=== PATIENT | female | born 1965 | race Caucasian/White ===

== ENCOUNTER 2022-12-02 02:46 | Emergency (ER) | payer OTHER ==
[2022-12-02 02:57] LABS: Glucose,Whole Blood 130 mg/dL (70-110)
--- NOTE | 2022-12-02 03:03 | ED ---
Alcohol HPI - General Stated Complaint: Fall, Head Injury Time Seen by Provider: 12/02/22 02:57 Source: EMS, RN notes reviewed, old records reviewed Limitations: altered mental status, physical limitation - History of Present Illness Initial Comments: This is a 55-year-old female to the emergency department for evaluation of fall. Patient had an alcoholic fall down an unknown amount of stairs. Patient did fall with head injury. She did hit her head and likely passed out per family but they're unsure. Patient was drinking alcohol today. Patient's brought in by EMS provides history is no family is currently at bedside. Patient is unable to provide any history as she has a GCS of 12, persistent intoxication was admitted admitted alcohol consumption today. Patient is not speaking or answering questions MD Complaint: alcohol intoxication Last Drink: unknown -: minute(s) Previous Visits for Alcohol Intoxication?: No Recent Trauma: Yes Treatments Prior to Arrival: cervical collar, spinal immobilization - Related Data Allergies Allergy/AdvReac Type Severity Reaction Status Date / Time Unable to Assess Allergy Verified 12/02/22 03:10 Review of Systems ROS Statement: Those systems with pertinent positive or pertinent negative responses have been documented in the HPI. ROS Other: All systems not noted in ROS Statement are negative. General Exam - General Exam Comments Initial Comments: GCS 12 Airways patent Trachea is midline Breath sounds are equal bilaterally Patient is not speaking Patient is able to move all extremities Limitations: altered mental status General appearance: alert, appears intoxicated, anxious, lethargic, in distress Head exam: Present: atraumatic, normocephalic, normal inspection Eye exam: Present: normal appearance, PERRL, EOMI, nystagmus. Absent: scleral icterus, conjunctival injection, periorbital swelling ENT exam: Present: normal exam, mucous membranes moist Neck exam: Present: normal inspection. Absent: tenderness, meningismus, lymphadenopathy Respiratory exam: Present: normal lung sounds bilaterally. Absent: respiratory distress, wheezes, rales, rhonchi, stridor Cardiovascular Exam: Present: regular rate, normal rhythm, normal heart sounds. Absent: systolic murmur, diastolic murmur, rubs, gallop, clicks GI/Abdominal exam: Present: soft, normal bowel sounds. Absent: distended, tenderness, guarding, rebound, rigid Extremities exam: Present: normal inspection, full ROM, normal capillary refill. Absent: tenderness, pedal edema, joint swelling, calf tenderness Back exam: Present: normal inspection Neurological exam: Present: alert, oriented X3, CN II-XII intact Psychiatric exam: Present: normal affect, normal mood Skin exam: Present: warm, dry, intact, normal color. Absent: rash Course Vital Signs 12/02/22 12/02/22 12/02/22 02:46 02:57 04:35 Pulse Rate 80 70 77 Respiratory 17 16 16 Rate Blood Pressure 144/94 121/79 121/79 O2 Sat by Pulse 97 99 99 Oximetry - Reevaluation(s) Reevaluation #1: 12/02/22 03:58 Medical record is reviewed Reevaluation #2: 12/02/22 03:58 Patient's neurological symptoms improving patient is currently able to speak and understand questioning Reevaluation #3: 12/02/22 03:58 Patient family informed of results questions answered Reevaluation #4: 12/02/22 03:58 Was pt. sent in by a medical professional or institution? @ -no Did you speak to anyone other than the patient for history? @ -no Did you review nursing and triage notes? @ -agree Were old charts reviewed? @ -yes Differential Diagnosis? @ -prior EKG interpreted by me (3pts min.)? @ -yes X-rays interpreted by me (1pt min.)? @ -yes CT interpreted by me (1pt min.)? @ -yes U/S interpreted by me (1pt. min.)? @ -no What testing was considered but not performed? (CT, X-rays, U/S, labs)? Why? @ -no What meds were considered but not given? Why? @ -no Did you discuss the management of the patient with other professionals? @ -no Did you reconcile home meds? @ -no Was smoking cessation discussed for >3mins.? @ -no Was critical care preformed (if so, how long)? @ -no Were there social determinants of health that impacted care today? How? (Home lessness, low income, unemployed, alcoholism, drug addiction, transportation, low edu. Level, literacy, decrease access to med. care, custodial, rehab)? @ -no Was there de-escalation of care discussed even if they declined? (Discuss DNR or withdrawal of care, Hospice)? @ -no What co-morbidities impacted this encounter? (DM, HTN, Smoking, COPD, CAD, Cancer, CVA, Hep., AIDS, mental health diagnosis, sleep apnea, morbid obesity)? @ -none Was patient admitted / discharged? @ -55 female to the emergency department today for evaluation of fall. Fall down flight of stairs with head trauma. Patient does have subarachnoid hemorrhage, patient originally was initially aphasic but currently answering q uestions and able to understand severity of situation. Patient will be transferred to [facility] for neurology evaluation and treatment Transferred Admitted Undiagnosed new problem with uncertain prognosis? @ -no Drug Therapy requiring intensive monitoring for toxicity (Heparin, Nitro, Insulin, Cardizem)? @ -no Were any procedures done? @ -no Diagnosis/symptom? @ -Fall, subarachnoid hemorrhage Acute, or Chronic, or Acute on Chronic? @ -acute Uncomplicated (without systemic symptoms) or Complicated (systemic symptoms)? @ -complicated Side effects of treatment? @ -no Exacerbation, Progression, or Severe Exacerbation] @ -no Poses a threat to life or bodily function? @ -yes intracranial hemorrhage Reevaluation #5: 12/02/22 03:58 Differential Altered Mental Status: Hypoglycemia, DKA, hypercapnia, ETOH, overdose, CO poisoning, trauma, myxedema coma, HTN encephalopathy, infection, encephalitis, psychosis, intercranial hemorrhage, hepatic encephalopathy, meningitis, CVA, this is not meant to be an all-inclusive list - Consultations Consultation #1: Spoke with [facility] will accept patient for transfer Medical Decision Making - Medical Decision Making 55 female to the emergency department today for evaluation of fall. Fall down flight of stairs with head trauma. Patient does have subarachnoid hemorrhage, patient originally was initially aphasic but currently answering questions and able to understand severity of situation. Patient will be transferred to [facility] for neurology evaluation and treatment - Lab Data Result diagrams: 12/02/22 02:50 12/02/22 02:50 Lab Results 12/02/22 12/02/22 12/02/22 Range/Units 02:50 02:50 02:50 WBC 8.6 (3.8-10.6) k/uL RBC 4.28 (3.80-5.40) m/uL Hgb 13.8 (11.4-16.0) gm/dL Hct 41.5 (34.0-46.0) % MCV 96.8 (80.0-100.0) fL MCH 32.3 (25.0-35.0) pg MCHC 33.3 (31.0-37.0) g/dL RDW 11.9 (11.5-15.5) % Plt Count 224 (150-450) k/uL MPV 7.4 Neutrophils % 41 % Lymphocytes % 46 % Monocytes % 7 % Eosinophils % 3 % Basophils % 1 % Neutrophils # 3.5 (1.3-7.7) k/uL Lymphocytes # 4.0 (1.0-4.8) k/uL Monocytes # 0.6 (0-1.0) k/uL Eosinophils # 0.2 (0-0.7) k/uL Basophils # 0.1 (0-0.2) k/uL PT 10.6 (9.0-12.0) sec INR 1.0 (<1.2) APTT 22.4 (22.0-30.0) sec Sodium 137 (137-145) mmol/L Potassium 4.9 (3.5-5.1) mmol/L Chloride 103 (98-107) mmol/L Carbon Dioxide 23 (22-30) mmol/L Anion Gap 11 mmol/L BUN 10 (7-17) mg/dL Creatinine 0.39 L (0.52-1.04) mg/dL Est GFR (CKD-EPI)AfAm >90 (>60 ml/min/1.73 sqM) Est GFR (CKD-EPI)NonAf >90 (>60 ml/min/1.73 sqM) Glucose 121 H (74-99) mg/dL POC Glucose (mg/dL) (70-110) mg/dL POC Glu C[employer] Sprayer Helper ID Plasma Lactic Acid Amos (0.7-2.0) mmol/L Calcium 8.6 (8.4-10.2) mg/dL Total Bilirubin 0.8 (0.2-1.3) mg/dL AST 81 H (14-36) U/L ALT 67 H (4-34) U/L Alkaline Phosphatase 65 (38-126) U/L Troponin I (0.000-0.034) ng/mL Total Protein 7.2 (6.3-8.2) g/dL Albumin 4.6 (3.5-5.0) g/dL Serum Alcohol 348 H* mg/dL Blood Type Blood Type Confirm Blood Type Recheck Bld Type Recheck Status Antibody Screen Spec Expiration Date 12/02/22 12/02/22 12/02/22 Range/Units 02:50 02:50 02:50 WBC (3.8-10.6) k/uL RBC (3.80-5.40) m/uL Hgb (11.4-16.0) gm/dL Hct (34.0-46.0) % MCV (80.0-100.0) fL MCH (25.0-35.0) pg MCHC (31.0-37.0) g/dL RDW (11.5-15.5) % Plt Count (150-450) k/uL MPV Neutrophils % % Lymphocytes % % Monocytes % % Eosinophils % % Basophils % % Neutrophils # (1.3-7.7) k/uL Lymphocytes # (1.0-4.8) k/uL Monocytes # (0-1.0) k/uL Eosinophils # (0-0.7) k/uL Basophils # (0-0.2) k/uL PT (9.0-12.0) sec INR (<1.2) APTT (22.0-30.0) sec Sodium (137-145) mmol/L Potassium (3.5-5.1) mmol/L Chloride (98-107) mmol/L Carbon Dioxide (22-30) mmol/L Anion Gap mmol/L BUN (7-17) mg/dL Creatinine (0.52-1.04) mg/dL Est GFR (CKD-EPI)AfAm (>60 ml/min/1.73 sqM) Est GFR (CKD-EPI)NonAf (>60 ml/min/1.73 sqM) Glucose (74-99) mg/dL POC Glucose (mg/dL) (70-110) mg/dL POC Glu C[employer] Sprayer Helper ID Plasma Lactic Acid Amos 1.5 (0.7-2.0) mmol/L Calcium (8.4-10.2) mg/dL Total Bilirubin (0.2-1.3) mg/dL AST (14-36) U/L ALT (4-34) U/L Alkaline Phosphatase (38-126) U/L Troponin I <0.012 (0.000-0.034) ng/mL Total Protein (6.3-8.2) g/dL Albumin (3.5-5.0) g/dL Serum Alcohol mg/dL Blood Type O Negative Blood Type Confirm Blood Type Recheck No Previous Record Bld Type Recheck Status CABO Indicated Antibody Screen NEGATIVE Spec Expiration Date 12/05/2022 - 234912/02/22 12/02/22 Range/Units 02:55 02:55 WBC (3.8-10.6) k/uL RBC (3.80-5.40) m/uL Hgb (11.4-16.0) gm/dL Hct (34.0-46.0) % MCV (80.0-100.0) fL MCH (25.0-35.0) pg MCHC (31.0-37.0) g/dL RDW (11.5-15.5) % Plt Count (150-450) k/uL MPV Neutrophils % % Lymphocytes % % Monocytes % % Eosinophils % % Basophils % % Neutrophils # (1.3-7.7) k/uL Lymphocytes # (1.0-4.8) k/uL Monocytes # (0-1.0) k/uL Eosinophils # (0-0.7) k/uL Basophils # (0-0.2) k/uL PT (9.0-12.0) sec INR (<1.2) APTT (22.0-30.0) sec Sodium (137-145) mmol/L Potassium (3.5-5.1) mmol/L Chloride (98-107) mmol/L Carbon Dioxide (22-30) mmol/L Anion Gap mmol/L BUN (7-17) mg/dL Creatinine (0.52-1.04) mg/dL Est GFR (CKD-EPI)AfAm (>60 ml/min/1.73 sqM) Est GFR (CKD-EPI)NonAf (>60 ml/min/1.73 sqM) Glucose (74-99) mg/dL POC Glucose (mg/dL) 130 H (70-110) mg/dL POC Glu C[employer] Sprayer Helper ID Shimon Howard Plasma Lactic Acid Amos (0.7-2.0) mmol/L Calcium (8.4-10.2) mg/dL Total Bilirubin (0.2-1.3) mg/dL AST (14-36) U/L ALT (4-34) U/L Alkaline Phosphatase (38-126) U/L Troponin I (0.000-0.034) ng/mL Total Protein (6.3-8.2) g/dL Albumin (3.5-5.0) g/dL Serum Alcohol mg/dL Blood Type Blood Type Confirm O Negative Blood Type Recheck Bld Type Recheck Status Antibody Screen Spec Expiration Date - EKG Data -: EKG Interpreted by Me (EKG is sinus 77 OK 197 QRS 180 QTC 439) - Radiology Data Radiology results: report reviewed (CT chest abdomen pelvis negative for acute disease CT brain C-spine does show frontal subarachnoid subdural hemorrhage), image reviewed Critical Care Time Critical Care Time: Yes Total Critical Care Time: 31 Disposition Clinical Impression: Fall, Subarachnoid hemorrhage, Subdural hemorrhage Disposition: OTHER INSTITUTION NOT DEFINED Condition: Critical Is patient prescribed a controlled substance at d/c from ED?: No Referrals: None,Stated [REFERRING] - 1-2 days Time of Disposition: 04:10 - Out of Hospital Transfer - Req. Specs Out of Hospital Transfer - Requested Specifics: Other Emergency Center ([facility])
[2022-12-02 03:17] LABS: ALT 67 U/L (4-34); African American GFR (CKD) >90 (>60 ml/min/1.73 sqM); Albumin 4.6 g/dL (3.5-5.0); Anion Gap 11 mmol/L; Blood Urea Nitrogen 10 mg/dL (7-17); Calcium 8.6 mg/dL (8.4-10.2); Carbon Dioxide 23 mmol/L (22-30); Chloride 103 mmol/L (98-107); Glucose 121 mg/dL (74-99); Non-African American GFR(CKD) >90 (>60 ml/min/1.73 sqM); Sodium 137 mmol/L (137-145); Total Bilirubin 0.8 mg/dL (0.2-1.3)
[2022-12-02 03:20] LABS: Basophils # (A) 0.1 k/uL (0-0.2); Basophils % (A) 1 %; Eosinophils # (A) 0.2 k/uL (0-0.7); Eosinophils % (A) 3 %; HCT 41.5 % (34.0-46.0); HGB 13.8 gm/dL (11.4-16.0); Lymphocytes % (A) 46 %; MCH 32.3 pg (25.0-35.0); MCHC 33.3 g/dL (31.0-37.0); MCV 96.8 fL (80.0-100.0); Mean Platelet Volume 7.4; Monocytes # (A) 0.6 k/uL (0-1.0); Monocytes % (A) 7 %; Neutrophils # (A) 3.5 k/uL (1.3-7.7); Neutrophils % (A) 41 %; Platelet Count 224 k/uL (150-450); RBC 4.28 m/uL (3.80-5.40); RDW 11.9 % (11.5-15.5); WBC 8.6 k/uL (3.8-10.6)
[2022-12-02 03:29] LABS: AST 81 U/L (14-36); Alcohol 348 mg/dL; Alkaline Phosphatase 65 U/L (38-126); Potassium 4.9 mmol/L (3.5-5.1); Total Protein 7.2 g/dL (6.3-8.2)
[2022-12-02 03:50] LABS: Partial Thromboplastin Time 22.4 sec (22.0-30.0); Prothrombin Time 10.6 sec (9.0-12.0)
--- NOTE | 2022-12-02 03:57 | CT ---
EXAM: CT Head Without Intravenous Contrast CLINICAL HISTORY: ITS.REASON CT Reason: trauma TECHNIQUE: Axial computed tomography images of the head/brain without intravenous contrast. CTDI is 30.3 mGy and DLP is 813 mGy-cm. This CT exam was performed using one or more of the following dose reduction techniques: automated exposure control, adjustment of the mA and/or kV according to patient size, and/or use of iterative reconstruction technique. COMPARISON: No relevant prior studies available. FINDINGS: Brain: There is a tiny amount subarachnoid and subdural blood over the right frontal lobe convexity. There is a tiny amount of subarachnoid blood in the right temporal sulci. No significant white matter disease. No edema. 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 Ventricles: Unremarkable. No ventriculomegaly. Bones/joints: There is a minimally displaced comminuted fracture of the left skull base extending to the left suboccipital calvarium. No acute fracture. Soft tissues: Mild soft tissue swelling about the posterior occiput with small hematoma and a small amount of subcutaneous air concerning for laceration. Sinuses: Unremarkable as visualized. No acute sinusitis. Mastoid air cells: Unremarkable as visualized. No mastoid effusion. IMPRESSION: There is a tiny amount of subarachnoid blood and subdural blood over the right frontal convexity with a tiny amount of subarachnoid blood in the right temporal lobe sulci. There is a minimally displaced comminuted fracture of the left skull base extending to the left suboccipital calvarium. EXAM: CT Cervical Spine Without Intravenous Contrast CLINICAL HISTORY: ITS.REASON CT Reason: trauma TECHNIQUE: Axial computed tomography images of the cervical spine without intravenous contrast. CTDI is 30.3 mGy and DLP is 813 mGy-cm. This CT exam was performed using one or more of the following dose reduction techniques: automated exposure control, adjustment of the mA and/or kV according to patient size, and/or use of iterative reconstruction technique. COMPARISON: No relevant prior studies available. FINDINGS: Vertebrae: Unremarkable. No acute fracture. Discs/spinal canal/neural foramina: No acute findings. No spinal canal stenosis. Soft tissues: Prominent cervical lymph nodes. Findings concerning for bronchitis, which may be of infectious or inflammatory etiologies. IMPRESSION: No evidence of acute cervical spine pathology.
[2022-12-02 04:38] VITALS: BP 121/79; PULSE 77; RESP 16
--- NOTE | 2022-12-02 04:56 | CT ---
EXAM: CT Chest With Intravenous Contrast CLINICAL HISTORY: ITS.REASON CT Reason: trauma TECHNIQUE: Axial computed tomography images of the chest with intravenous contrast. CTDI is 11.85 mGy and DLP is 1143.2 mGy-cm. This CT exam was performed using one or more of the following dose reduction techniques: automated exposure control, adjustment of the mA and/or kV according to patient size, and/or use of iterative reconstruction technique. COMPARISON: No relevant prior studies available. FINDINGS: Lungs: Moderate to heavy peribronchial thickening of the central and lower lobe bronchi. No mass. No consolidation. Pleural space: Unremarkable. No pneumothorax. No significant effusion. Heart: Mild cardiomegaly. No significant pericardial effusion. No significant coronary artery calcifications. Bones/joints: Unremarkable. No acute fracture. No dislocation. Soft tissues: Unremarkable. Vasculature: Ascending aorta aneurysm measuring 36.5 mm in diameter. Lymph nodes: Unremarkable. No enlarged lymph nodes. IMPRESSION: No evidence of acute thoracic injury. Findings concerning for bronchitis, which may be of infectious or inflammatory etiologies. EXAM: CT Abdomen and Pelvis With Intravenous Contrast CLINICAL HISTORY: ITS.REASON CT Reason: trauma TECHNIQUE: Axial computed tomography images of the abdomen and pelvis with intravenous contrast. CTDI is 11.85 mGy and DLP is 1143.2 mGy-cm. This CT exam was performed using one or more of the following dose reduction techniques: automated exposure control, adjustment of the mA and/or kV according to patient size, and/or use of iterative reconstruction technique. COMPARISON: No relevant prior studies available. FINDINGS: Lung bases: Unremarkable. No mass. No consolidation. ABDOMEN: Liver: Hepatic steatosis. No mass. Gallbladder and bile ducts: Unremarkable. No calcified stones. No ductal dilation. Pancreas: Unremarkable. No mass. No ductal dilation. Spleen: Unremarkable. No splenomegaly. Adrenals: Unremarkable. No mass. Kidneys and ureters: Left nephrolithiasis. No solid mass. No hydronephrosis. Stomach and bowel: Diverticulosis of the descending and sigmoid colon. No obstruction. No mucosal thickening. PELVIS: Appendix: No findings to suggest acute appendicitis. Bladder: Unremarkable. No mass. Reproductive: Unremarkable as visualized. ABDOMEN and PELVIS: Intraperitoneal space: Unremarkable. No free air. No significant fluid collection. Bones/joints: Advanced disc degeneration at L1 to moderate disc degeneration at L2-3 and L4-5. Spondylolisthesis at L4-5, L3-4, and L2-3. No acute fracture. No dislocation. Soft tissues: Unremarkable. Vasculature: Unremarkable. No abdominal aortic aneurysm. Lymph nodes: Unremarkable. No enlarged lymph nodes. IMPRESSION: No evidence of acute intra-abdominal injury. Hepatic steatosis. Diverticulosis of the descending and sigmoid colon. Left nephrolithiasis.
== END 2022-12-02 04:39 | disposition other institution (70) ==
LOC: EC 02:46 → EDBD 02:46 → EC 04:39
DX: S06.5XAA Traumatic subdural hemorrhage with loss of consciousness status unknown, initial encounter (principal); S06.6XAA Traumatic subarachnoid hemorrhage with loss of consciousness status unknown, initial encounter; F10.129 Alcohol abuse with intoxication, unspecified; W10.8XXA Fall (on) (from) other stairs and steps, initial encounter
CPT/HCPCS: 36415; 93005; 86900; 86901; 80053; 83605; 84484; 85025; 85610; 85730; 86850; 80320; 72125; 70450; 71260; 74177; 99291; Q9967